=== PATIENT | male | born 1970 | race Hispanic/Latino ===

== ENCOUNTER 2017-07-03 10:55 | Emergency (ER) | payer OTHER ==
[~2017-07-03] VITALS: Ht 175.3 cm; Wt 108.0 kg
[~2017-07-03 10:55] MED LIST: CLINDAMYCIN HC300 MG PO; DOXYCYCLINE HY100 MG PO; LANTUS SOL100 UNIT/1 SUB-Q; NORCO 5-325 TA1 EACH PO; NOVOLOG FL100 UNIT/1 SUB-Q; PREDNISONE20 MG PO; SIMVASTATIN20 MG PO; TYLENOL EXTRA500 MG PO; ULTRAM50 MG PO
[2017-07-03] MEDS ORDERED: ULTRAM50 MG PO (11:55)
[2017-07-03] MEDS ORDERED: CLEOCIN HCL300 MG PO (11:55)
[2017-07-03] MEDS ORDERED: AUGMENTIN 875-1 EACH PO (11:55)
== END 2017-07-03 12:32 | disposition home or self-care (01) ==
LOC: ED 10:55
DX: L03.211 Cellulitis of face (principal); E11.9 Type 2 diabetes mellitus without complications; E78.00 Pure hypercholesterolemia, unspecified; Z86.14 Personal history of Methicillin resistant Staphylococcus aureus infection; F17.200 Nicotine dependence, unspecified, uncomplicated; Z88.2 Allergy status to sulfonamides; Z79.4 Long term (current) use of insulin; Z79.899 Other long term (current) drug therapy
CPT/HCPCS: 96372; 99283; J0696

== ENCOUNTER 2017-10-01 17:53 | Emergency (ER) | payer OTHER ==
[~2017-10-01 17:53] MED LIST changes: +AUGMENTIN 875-1 EACH PO; +CLEOCIN HCL300 MG PO
[2017-10-01] MEDS ORDERED: ZOFRAN ODT4 MG SL (21:39)
[2017-10-01] MEDS ORDERED: NORCO 5-325 TA1 EACH PO (21:39)
[2017-10-01] MEDS ORDERED: CEPHALEXIN500 MG PO (21:39)
== END 2017-10-01 22:22 | disposition home or self-care (01) ==
LOC: ED 17:53
PROC: 0HQ0XZZ Repair Scalp Skin, External Approach (ICD-10-PCS; principal; 2017-10-01)
DX: S02.0XXA Fracture of vault of skull, initial encounter for closed fracture (principal); S01.01XA Laceration without foreign body of scalp, initial encounter; Z23 Encounter for immunization; E11.9 Type 2 diabetes mellitus without complications; E78.00 Pure hypercholesterolemia, unspecified; F17.200 Nicotine dependence, unspecified, uncomplicated; Z86.14 Personal history of Methicillin resistant Staphylococcus aureus infection; Z88.2 Allergy status to sulfonamides; Z79.899 Other long term (current) drug therapy; Z79.2 Long term (current) use of antibiotics; Z79.4 Long term (current) use of insulin; W22.8XXA Striking against or struck by other objects, initial encounter
CPT/HCPCS: 12001; 70450; 70486; 71010; 72125; 80053; 82150; 82550; 85025; 86850; 86900; 86901; 90471; 90715; 96374; 96375; 99284; G0390; G0480; J1200; J2270; J2405; J2765